=== PATIENT | female | born 1995 | race Asian ===

== ENCOUNTER 2017-05-29 09:42 | Emergency (ER) | payer OTHER ==
[2017-05-29 10:31] LABS: NEGATIVE OBC STREP NEG; POSITIVE OBC STREP POS
[2017-05-29] MEDS: LIDOCAINE 2% VISCOUS 15 ML SOLUTION. SWSW ×2 (10:39)
[2017-05-29] MEDS: IBUPROFEN 800 MG TABLET. PO ×2 (10:39)
[2017-05-29] MEDS: ACETAMINOPHEN 500 MG TABLET PO ×2 (10:39)
== END 2017-05-29 10:46 | disposition home or self-care (01) ==
LOC: ER 09:42
DX: J02.0 Streptococcal pharyngitis (principal); R50.9 Fever, unspecified
CPT/HCPCS: 87880; 99284

== ENCOUNTER 2018-01-28 19:47 | Emergency (ER) | payer OTHER ==
[~2018-01-28] VITALS: Ht 162.6 cm; Wt 90.7 kg
[~2018-01-28 19:47] MED LIST: AMOX875T PO; CEPH-264 PO; FLUT9.9S NS; NITR100C PO; PRED50TA PO
[2018-01-28 20:10] VITALS: BP 151/72
[2018-01-28 20:55] LABS: BILIRUBIN,URINE NEGATIVE (NEG); CLARITY,URINE CLEAR; COLOR,URINE YELLOW; NITRITE,URINE NEGATIVE (NEG); PH,URINE 5.5; PROTEIN,URINE NEGATIVE (NEG-TRACE); UROBILINOGEN,URINE 0.2 mg/dL (0.2 mg/dL)
[2018-01-28 21:00] LABS: RBC,URINE >40 /HPF (0-2)
[2018-01-28 21:01] LABS: BACTERIA,URINE FEW /HPF (0-FEW); SQUAMOUS EPITHELIAL CELL,UR MOD /LPF
[2018-01-28 21:05] LABS: BASO # 0.1 x10^3/uL (0.0-0.2); BASO % 1 % (0-3); EOS # 0.4 x10^3/uL (0.0-0.7); EOS % 3 % (0-3); HEMATOCRIT 36.5 % (36.0-47.0); HEMOGLOBIN 12.6 g/dL (12.0-15.5); LYMPH # 4.4 x10^3/uL (1.0-4.8); LYMPH % 38 % (24-48); MEAN CORPUSCULAR HEMOGLOBIN 29 pg (25-35); MEAN CORPUSCULAR HGB CONC 35 g/dL (31-37); MEAN CORPUSCULAR VOLUME 83 fL (79-100); MONO # 0.6 x10^3/uL (0.0-1.1); MONO % 5 % (0-9); NEUT # 6.1 x10^3uL (1.8-7.7); NEUT % 53 % (31-73); PLATELET COUNT 259 x10^3/uL (140-400); RED BLOOD COUNT 4.38 x10^6/uL (3.50-5.40); RED CELL DISTRIBUTION WIDTH 13.4 % (11.5-14.5); WHITE BLOOD COUNT 11.5 x10^3/uL (4.0-11.0)
[2018-01-28 21:20] LABS: CALCIUM 10.3 mg/dL (8.5-10.1); CREATININE 0.7 mg/dL (0.6-1.0); GFR 102.8; POTASSIUM 3.9 mmol/L (3.5-5.1)
--- NOTE | 2018-01-28 22:13 | RAD ---
OB ultrasound less than 14 weeks and transvaginal OB ultrasound HISTORY: Bleeding in early Sonographic examination of the was performed by transabdominal and endovaginal technique and multiple static images were obtained OB ultrasound less than 14 weeks transabdominal: The uterus appears normal. There is no gestational sac. Transvaginal OB ultrasound: Endometrium measures 1.8 cm in thickness and is mildly heterogeneous. The ovaries are not well seen but appear normal. IMPRESSION: No sonographic evidence of . This could be an early or miscarriage. Recommend correlation with serial quantitative beta-hCG. If the continues a short-term follow-up ultrasound should be performed in order to document a viable intrauterine . Electronically signed by: Natanael Smiley III, MD (01/28/2018 10:10 PM) [facility]
--- NOTE | 2018-01-28 22:57 | PHYS DOC ---
Past Medical History Past Medical History: UTI Past Surgical History: No Surgical History Alcohol Use: None Drug Use: None Adult General Chief Complaint Chief Complaint: VAGINAL BLEEDING [facility] 22-year-old female presents to ER with for complaints of vaginal bleeding. Patient reports she is uncertain of gestation with last menstrual cycle at the end of October. Patient reports she took home test on which was positive denying any care or confirmation with labs or ultrasound. Patient reports she is 4 para 3 with last child 20 months ago. Patient denies any complications with previous pregnancies. Patient reports this morning at 10 AM she started having vaginal spotting and lower abdominal cramping. Patient reports she laid down for a nap and around 1:20 PM woke up 2 large gush of vaginal bleeding which she passed large clots and what appeared to be tissue. Patient reports following the gush of vaginal blood and clots her abdominal cramping eased. Patient reports she has used approx. 5 pads since 1:20 p.m. patient currently rates pain at 2 out of 10 denying any over-the -counter meds prior to arrival. Patient denies any dizziness, lightheadedness, urinary symptoms, or fever/chills. Review of Systems Review of Systems Constitutional: Denies fever or chills [] Respiratory: Denies shortness of breath [] Cardiovascular: No additional information not addressed in HPI [] GI: Denies nausea, vomiting, bloody stools or diarrhea. Reports lower abdominal cramping : Denies dysuria or hematuria. Reports vaginal bleeding with blood clots and possible tissue Musculoskeletal: Denies back pain Integument: Denies rash, swelling or skin lesions [] Neurologic: Denies headache, itchiness or lightheadedness All other systems were reviewed and found to be within normal limits, except as documented in this note. Allergies Allergies Allergies Coded Allergies Type Severity Reaction Last Updated Verified No Known Drug Allergies 09/23/14 No Physical Exam Physical Exam Constitutional: Well developed, well nourished, no acute distress, non-toxic appearance. [] HENT: Normocephalic, atraumatic, oropharynx moist, nose normal. [] Eyes: PERRLA, no nystagmus, conjunctiva normal, no discharge. [] Neck: Normal range of motion, no tenderness, supple Cardiovascular:Heart rate regular rhythm, no murmur [] Lungs & Thorax: Bilateral breath sounds clear to auscultation. Respirations equal and nonlabored Abdomen: Bowel sounds normal, soft/no rigidity, mild diffuse tenderness and lower abdomen with no focal area, no masses, no pulsatile masses. [] Skin: Warm, dry, no erythema, no rash. [] Back: No tenderness, no CVA tenderness. [] Extremities: No tenderness, no cyanosis, no clubbing, ROM intact, no edema. [] Neurologic: Alert and oriented X 3, normal motor function, normal sensory function, no focal deficits noted. [] Psychologic: Affect normal, judgement normal, mood normal. [] Current Patient Data Vital Signs Vital Signs Date Time Temp Pulse Resp B/P (MAP) Pulse Ox O2 Delivery O2 Flow Rate FiO2 01/28/18 20:10 98.7 77 18 151/72 (98) 99 Room Air 98.7 Lab Values Laboratory Tests Test 01/28/18 19:57 01/28/18 20:18 01/28/18 20:58 Urine Collection Type Unknown Urine Color Yellow Urine Clarity Clear Urine pH 5.5 Urine Specific [place] 1.025 Urine Protein Negative mg/dL (NEG-TRACE) Urine Glucose (UA) Negative mg/dL (NEG) Urine Ketones (Stick) Negative mg/dL (NEG) Urine Blood Large (NEG) Urine Nitrite Negative (NEG) Urine Bilirubin Negative (NEG) Urine Urobilinogen Dipstick 0.2 mg/dL (0.2 mg/dL) Urine Leukocyte Esterase Small (NEG) Urine RBC >40 /HPF (0-2) Urine WBC 11-20 /HPF (0-4) Urine Squamous Epithelial Cells Mod /LPF Urine Bacteria Few /HPF (0-FEW) POC Urine HCG, Qualitative Hcg positive (Negative) White Blood Count 11.5 x10^3/uL (4.0-11.0) H Red Blood Count 4.38 x10^6/uL (3.50-5.40) Hemoglobin 12.6 g/dL (12.0-15.5) Hematocrit 36.5 % (36.0-47.0) Mean Corpuscular Volume 83 fL (79-100) Mean Corpuscular Hemoglobin 29 pg (25-35) Mean Corpuscular Hemoglobin Concent 35 g/dL (31-37) Red Cell Distribution Width 13.4 % (11.5-14.5) Platelet Count 259 x10^3/uL (140-400) Neutrophils (%) (Auto) 53 % (31-73) Lymphocytes (%) (Auto) 38 % (24-48) Monocytes (%) (Auto) 5 % (0-9) Eosinophils (%) (Auto) 3 % (0-3) Basophils (%) (Auto) 1 % (0-3) Neutrophils # (Auto) 6.1 x10^3uL (1.8-7.7) Lymphocytes # (Auto) 4.4 x10^3/uL (1.0-4.8) Monocytes # (Auto) 0.6 x10^3/uL (0.0-1.1) Eosinophils # (Auto) 0.4 x10^3/uL (0.0-0.7) Basophils # (Auto) 0.1 x10^3/uL (0.0-0.2) Maternal Serum HCG Beta Subunit 5215 mIU/mL (0-5) H Sodium Level 142 mmol/L (136-145) Potassium Level 3.9 mmol/L (3.5-5.1) Chloride Level 104 mmol/L (98-107) Carbon Dioxide Level 25 mmol/L (21-32) Anion Gap 13 (6-14) Blood Urea Nitrogen 15 mg/dL (7-20) Creatinine 0.7 mg/dL (0.6-1.0) Estimated GFR (Cockcroft-Gault) 102.8 Glucose Level 95 mg/dL (70-99) Calcium Level 10.3 mg/dL (8.5-10.1) H Laboratory Tests 01/28/18 20:58 Laboratory Tests 01/28/18 20:58 EKG EKG [] Radiology/Procedures Radiology/Procedures PROCEDURE: OB <14 WKS W/TV OB ultrasound less than 14 weeks and transvaginal OB ultrasound HISTORY: Bleeding in early Sonographic examination of the was performed by transabdominal and endovaginal technique and multiple static images were obtained OB ultrasound less than 14 weeks transabdominal: The uterus appears normal. There is no gestational sac. Transvaginal OB ultrasound: Endometrium measures 1.8 cm in thickness and is mildly heterogeneous. The ovaries are not well seen but appear normal. IMPRESSION: No sonographic evidence of . This could be an early or miscarriage. Recommend correlation with serial quantitative beta-hCG. If the continues a short-term follow-up ultrasound should be performed in order to document a viable intrauterine . Electronically signed by: Tomas Smiley III, MD (01/28/2018 10:10 PM) [facility] DICTATED and SIGNED BY: TOMAS SMILEY III, MD DATE: 01/28/182206 Pelvic Exam: Music Box [employer] present RN External Genitalia: Normal Skin Speculum: Normal vaginal mucosa- no visible lesions/erythema, blood in vaginal vault- cervix visualized not open with no visible tissue at cervical os - swabs used to clear blood in vaginal vault and no active bleeding visualized. No tissue in vault Pt tolerated pelvic exam well denying any pain. Course & Med Decision Making Course & Med Decision Making Pertinent Labs and Imaging studies reviewed. (See chart for details) 2214: Discussed test results with patient with ultrasound report of "No sonographic evidence of . This could be an early or miscarriage". Beta quant was 5215 and pt was blood type B positive; WBCs at 11.5 with H&H 12.6/36.5. UA with lg blood sm. leuks neg. nitrates micro with bacteria/sq cells and 11-20 WBCs- will tx with Keflex Rx. Pt denies any urinary sxs- will hold off on tx at this time. Discussed concerns for miscarriage with pt's US and her report on sxs [employer] to ER. Indepth conversation was had with pt regarding tests and need for f/u in 48 hrs for recheck of HCG quant level- pt reports her PCP is also [employer] specialty and so she can f/u at her office for this. Pt denies any pain at this time. Pelvic exam complete with RN at bedside- cervical os was closed with no visible tissue at os or in vaginal vault- no active bleeding on exam. Pt denies dizziness/lightheadedness. Dragon Disclaimer Dragon Disclaimer This electronic medical record was generated, in whole or in part, using a voice recognition dictation system. Departure Departure Impression: Primary Impression: Threatened in early Additional Impression: UTI (urinary tract infection) Disposition: 01 HOME, SELF-CARE Condition: STABLE Referrals: CIELO NASCIMENTO MD (PCP) Patient Instructions: Threatened Miscarriage, Urinary Tract Infection Additional Instructions: You should have your HCG quantitative level rechecked in 48 hours- your level was 5215 while in the Emergency Department. If you soak through more than 1-2 pads in an hour or with any concerns return to Emergency Department. Tylenol as needed for pain as directed on container. Scripts Cephalexin (KEFLEX) 500 Mg Capsule 1 CAP PO BID, #10 CAP 0 Refills Prov: CHELI SIMONS APRN 01/28/18 Problem Qualifiers CHELI SIMONS APRN Jan 28, 2018 22:57
[2018-01-28] MEDS ORDERED: CEPH-264 PO (22:59)
== END 2018-01-28 23:17 | disposition home or self-care (01) ==
LOC: ER 19:47
DX: O20.0 Threatened abortion (principal); O23.41 Unspecified infection of urinary tract in pregnancy, first trimester; Z3A.12 12 weeks gestation of pregnancy
CPT/HCPCS: 36415; 76801; 76817; 80048; 81001; 81025; 84702; 85025; 86900; 86901; 87086; 99285-25

== ENCOUNTER → 2018-04-19 | Outpatient (CLI) | payer MEDICAID, OTHER ==
--- NOTE | 2018-04-19 18:10 | RAD ---
OB <14 WKS W/TV History: Positive test Comparison: None. Findings: Multiple transabdominal sonographic images of pelvis are submitted. Uterus measured 10.8 x 5 x 6.7 cm. Ovaries are not demonstrated. Transvaginal ultrasound: Multiple transvaginal sonographic images of the pelvis are submitted. Uterus measured 10.8 x 6.7 x 5 cm. There is a mass of the posterior uterus near the fundus about 4.5 x 2.5 x 3.9 cm. There is a single intrauterine gestational sac with visible yolk sac and pole. Gestational sac morphology is within normal limits. anatomy and placenta are not well visualized at this age of the . Amniotic fluid volume is within normal limits. [place]-rump length measurement of 0.45 cm corresponds with 6 weeks 1 day. Adjusted ultrasound age is 6 weeks 1 day with estimated delivery date of 12/12/2018. LMP dating is not provided. There is demonstrable cardiac activity 116 bpm. There is nabothian cyst about 0.9 cm. Neither ovary could be visualized. No free fluid is demonstrated Impression: 1. There is a single viable intrauterine , adjusted ultrasound age of 6 weeks 1 day with estimated delivery date by ultrasound of 12/12/2018. 2. There is a posterior uterine mass, likely fibroid. 3. Neither ovary could be visualized. No free fluid is demonstrated. Electronically signed by: Ernst Feng MD (04/19/2018 6:06 PM) [facility]
== END | disposition home or self-care (01) ==
LOC: US 15:58
PROVIDERS: ATTEND Family Medicine
DX: O26.891 Other specified pregnancy related conditions, first trimester (principal); Z3A.01 Less than 8 weeks gestation of pregnancy; N88.8 Other specified noninflammatory disorders of cervix uteri
CPT/HCPCS: 76801; 76817

== ENCOUNTER → 2019-08-23 | Outpatient (CLI) | payer OTHER ==
--- NOTE | 2019-08-23 09:58 | KCIC ---
LUMBAR SPINE RADIOGRAPHS (AP and lateral views with a coned-down lateral view of the lumbosacral junction): DATE: 08/23/2019 12:00 AM INDICATION: Lower back pain with left-sided sciatica, falls COMPARISON: None. FINDINGS: Five non-rib bearing lumbar-type vertebral bodies are present. The normal lumbar lordosis is preserved. No listhesis. Vertebral body heights are normal. There is no evidence of acute fracture. The disc spaces are maintained. The visualized soft tissues are unremarkable. IMPRESSION: No acute lumbar fracture or malalignment. Electronically signed by: Mesfin Cabrera MD (08/23/2019 9:55 AM) [id number]
== END | disposition home or self-care (01) ==
LOC: KCIC 09:19
PROVIDERS: ATTEND Nurse Practitioner Gerontology
DX: M40.46 Postural lordosis, lumbar region (principal); M54.42 Lumbago with sciatica, left side
CPT/HCPCS: 72100